=== PATIENT | male | born 1980 | race Caucasian/White ===

== ENCOUNTER → 2019-02-19 | Outpatient (REF) ==
--- NOTE | 2019-02-19 13:17 | REP ---
LEFT HIP, TWO VIEWS: Two views of the left hip performed. No acute fracture or dislocation is seen. There is mild joint space narrowing, subchondral sclerosis, and spurring at the hip joint compatible with mild arthritic changes. There is mild tendinous calcification adjacent to the lesser trochanter likely located in the iliopsoas tendon. IMPRESSION: Mild degenerative changes and tendinous calcifications. Electronically Signed by Lemuel Callahan MD 02/19/2019 04:35 P
--- NOTE | 2019-02-19 13:46 | REP ---
PARTIAL LUMBAR SPINE, THREE VIEWS: HISTORY: Degenerative disc disease. There is no acute fracture. The L4-5 and L5-S1 intervertebral discs are decreased in height consistent with disc degeneration. Osteophytes are present on L4 and 5. There are 9 mm of grade 1 spondylolisthesis of L4 on 5. This is associated with L4 pars defects. IMPRESSION: Degenerative change as described above. Electronically Signed by Salazar Zacarias MD 02/19/2019 01:53 P
== END ==
LOC: M SMT 11:33
PROVIDERS: ATTEND Internal Medicine
DX: M51.36 Other intervertebral disc degeneration, lumbar region (principal)